=== PATIENT | male | born 1990 | race Caucasian/White ===

== ENCOUNTER 2017-02-17 14:27 | Emergency (ER) | payer BC, MEDICAID ==
[2017-02-17 16:30] VITALS: BP 139/78
--- NOTE | 2017-02-17 17:30 | RAD ---
Indication: Left knee injury. 4 views of the left knee demonstrates no fracture. There is suggestion of a joint effusion. IMPRESSION: No fracture of the left knee is noted. There is suggestion of a joint effusion noted.
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
== END 2017-02-17 18:38 | disposition home or self-care (01) ==
LOC: ED 14:27
DX: S83.92XA Sprain of unspecified site of left knee, initial encounter (principal); X50.1XXA Overexertion from prolonged static or awkward postures, initial encounter; Y93.89 Activity, other specified
CPT/HCPCS: 99282

== ENCOUNTER 2019-01-06 08:29 | Day surgery (SDC) | payer BC, MEDICAID ==
--- NOTE | 2019-01-03 18:24 | HP ---
PREOPERATIVE HISTORY AND PHYSICAL: DATE OF ADMISSION/SURGERY: 01/06/19 [facility] DATE OF OFFICE VISIT: 01/02/19 ATTENDING SURGEON: Dr. Cameron Byers.* (DICTATED BY MILLICENT MAST) PROCEDURES: Left knee arthroscopy, anterior cruciate ligament reconstruction, partial meniscectomy. CHIEF COMPLAINT: Left knee pain. HISTORY OF PRESENT ILLNESS: Justin is a 28-year-old male who presents to the clinic for left knee pain and instability due to a meniscus tear and ACL injury. He has failed conservative measures and therefore agreed to undergo a left knee arthroscopy, anterior cruciate ligament reconstruction, and partial meniscectomy with on 01/06/19. PAST MEDICAL HISTORY: No current problems. PAST SURGICAL HISTORY: Right knee surgery in high school. The patient denies prior complications with anesthesia. MEDICATIONS: No active medications. ALLERGIES: No known drug allergies. FAMILY HISTORY: He denies pertinent family history. He denies family history of DVT or PE. SOCIAL HISTORY: He lives with his spouse. He works as a hospital receiving clerk. He denies tobacco use. He reports occasional alcohol consumption. He exercises occasionally. He is right-hand dominant. REVIEW OF SYSTEMS: A 14-point review of systems was reviewed with the patient. Positive for current complaint, otherwise negative. Denies fevers, chills, chest pain, shortness of breath, history of DVT or PE, history of bleeding disorder. PHYSICAL EXAMINATION GENERAL: A 28-year-old well-developed, well-nourished male, in no acute distress. Alert and oriented x3. Appropriate mood and affect. Appropriate balance and coordination of the upper extremities. VITAL SIGNS: Height 73, weight 230, pulse 74, blood pressure 134/86, BMI 30.3. HEENT: Normocephalic, atraumatic. PERRLA. Throat: Clear. NECK: Supple. PULMONARY: Lungs are clear to auscultation bilaterally. No wheezing, rhonchi, or rales. CARDIO: Regular rate and rhythm. S1, S2. No murmurs, gallops, or rubs. No edema. ABDOMEN: Positive bowel sounds, soft, nontender. NEURO: Alert and oriented x3. Cranial nerves grossly intact. MUSCULOSKELETAL: Left lower extremity, skin is intact. No warmth or erythema. Nontender over the joint lines. No effusion. Range of motion 0 to 130. Stable varus and valgus stress. Stable Melissa. Negative posterior drawer. Calf soft, nontender. +5/5 strength with dorsiflexion and plantar flexion. +2 DP pulse. Sensation is intact to light touch distally. DIAGNOSTIC STUDIES: Multi-view x-rays and MRI of the left knee revealed a complete ACL rupture and discoid meniscus. 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 PLAN: The patient is scheduled to undergo a left knee arthroscopy, anterior cruciate ligament reconstruction with partial meniscectomy with Dr. Byers on . He has agreed to undergo BTB autograft. Percocet will be used for postop management and Keflex for antibiotic prophylaxis. He will follow up 8 days postop. MILLICENT MAST [id number]/[facility] #: [id number] ABEL
[~2019-01-06 08:29] MED LIST: Famotidine IV* 10 MG/ML 2 ML (20 mg) IV ONE; Lactated Ringers 1000 ML Bag* 1,000 ML IV SCH
[2019-01-06] MEDS ORDERED: ceFAZolin 2 GM in NS PREMIX(*) 2 GM/100 ML BAG IVPB ONE (08:41)
[2019-01-06] MEDS ORDERED: Famotidine IV* 10 MG/ML 2 ML (20 mg) ONE (08:41)
[2019-01-06] MEDS ORDERED: Buffered Lidocaine 1% SYRIN* 1 ML/SYRINGE INTRADERM ONE ×2 (08:41→08:47)
[2019-01-06] MEDS: Buffered Lidocaine 1% SYRIN* 1 ML/SYRINGE INTRADERM ONE (09:00)
[2019-01-06] MEDS ORDERED: Ketorolac INJ* 30 MG/ML 1 ML VIAL ONE (09:03)
[2019-01-06] MEDS ORDERED: fentaNYL* 50 MCG/ML 5 ML VIAL (250 MCG VIAL) ONE (09:03)
[2019-01-06] MEDS ORDERED: Midazolam* 1 MG/ML 5 ML VIAL (5 MG) ONE (09:03)
[2019-01-06] MEDS ORDERED: Ondansetron INJ* 2 MG/ML VIAL ONE (09:03)
[2019-01-06] MEDS ORDERED: Dexamethasone IV* 4 MG/ML 1 ML (4 MG) ONE (09:03)
[2019-01-06] MEDS ORDERED: Propofol* 10 MG/ML 20 ML BTL ONE (09:03)
[2019-01-06] MEDS ORDERED: Lidocaine 2% PF * 5 ML VIAL ONE (09:03)
[2019-01-06] MEDS ORDERED: oxyCODONE/Acetamin 5/325 MG* TAB PO PRN (11:39)
[2019-01-06] MEDS ORDERED: Ondansetron INJ* 2 MG/ML VIAL IV PRN (11:39)
[2019-01-06] MEDS ORDERED: Naloxone* 0.4 MG/ML 1 ML VIAL IV PRN (11:39)
[2019-01-06] MEDS ORDERED: fentaNYL* 50 MCG/ML 2 ML VIAL (100 MCG VIAL) ONE ×2 (12:08→12:48)
[2019-01-06] MEDS ORDERED: Ropivacaine* 2 MG/ML 20 ML VIAL (0.2%) ONE (12:34)
[2019-01-06] MEDS ORDERED: Lidocaine 1% MPF wEPI 200,000* 30 ML SDV ONE (12:34)
[2019-01-06] MEDS ORDERED: oxyCODONE/Acetamin 5/325 MG* TAB ONE (12:48)
[2019-01-06] MEDS ORDERED: HYDROmorphone INJ1* 1 MG/ML SYRINGE ONE (12:48)
[2019-01-06] MEDS: fentaNYL* 50 MCG/ML 2 ML VIAL (100 MCG VIAL) IV PRN ×2 (12:52→13:07)
[2019-01-06] MEDS: HYDROmorphone INJ1* 1 MG/ML SYRINGE IV PRN ×2 (12:53→13:11)
[2019-01-06 15:19] VITALS: BP 143/83
--- NOTE | 2019-01-07 02:24 | OP ---
DATE OF OPERATION: 01/06/19 [facility] DATE OF : 86 SURGEON: Cameron Byers MD. LENDING CONSULTANT: MILLICENT Graves. An development assistant was needed for the entirety of the case to help with positioning, retraction, and was utilized throughout all portions of the case. ANESTHESIOLOGIST: Dr. Bryan. ANESTHESIA: General. PRE-OP DIAGNOSIS: Left knee grade 3 anterior cruciate ligament rupture. POST-OP DIAGNOSIS: Left knee grade 3 anterior cruciate ligament rupture. OPERATIVE PROCEDURE: Left knee arthroscopy with ACL reconstruction using BTB autograft and partial lateral meniscectomy. COMPLICATIONS: None. ESTIMATED BLOOD LOSS: Minimal. TOURNIQUET TIME: 56 minutes at 250 mmHg. INDICATIONS: Justin Diaz is a 28-year-old male who sustained a left ACL injury with a lateral meniscus tear. After extensive discussion of the risks and benefits of surgical treatment, risks including; but not limited to bleeding , infection, damage to nerves; vessels; surrounding structures, wound nonhealing , persistent pain, need for further surgery, scarring, stiffness, incomplete relief of symptoms, risk of anesthesia, risk of DVT, he elected to proceed. DESCRIPTION OF PROCEDURE: Patient was greeted in the preoperative area by the attending surgeon. The correct extremity was marked and consent was confirmed. Patient was brought back to the operating suite, where he was placed in the supine position on the operating table. He then underwent general anesthesia and LMA intubation, after which he was placed in the supine position on the operating table. The lateral post was positioned, an unsterile tourniquet was placed as well as a bump to keep the knee at 90 degrees. An unsterile tourniquet was placed high on the proximal thigh, lateral post was positioned, and beanbag was placed. The left leg was then prepped and draped in usual sterile fashion beginning with chlorhexidine soap, scrub, and alcohol wipe and a final prep of ChloraPrep. After appropriate surgical pause indicating side, site, procedure, and administration of antibiotics, the knee was intraarticularly injected with 1% lidocaine with epi. The limb was then exsanguinated and the tourniquet inflated to 250 mmHg, after which a midline incision was centered over the patellar tendon. Care was taken to try to avoid the very bursal areas for prepatellar bursitis. The soft tissues were carefully dissected to expose the paratenon, which was then incised for a layer with flaps for later closure, after which the patellar tendon was identified and found to be 40 mm in length and width. The center 10 mm was then harvested with a 10 blade. The dissection was taken proximally and the bone block was harvested using a sagittal saw to allow for a 9 x 23 mm bone block. Distally, a 10 x 30 was then harvested using sagittal saw. The graft was then prepared on the back table by the development assistant while the attending closed the tendon with an 0 Vicryl in an interrupted fashion. The tourniquet was eventually deflated after the arthroscopic portion was done. Attention was then directed to arthroscopy. The lateral portal was then made through the capsule. Using an 11 blade, the scope was brought to the joint and examined. There was abundant synovitis of the fat pad anteriorly. The anteromedial portal was made in an outside-in fashion. The shaver was used to debride back the abundant fat pad. The ACL was visualized and found to have a full-thickness grade 3 rupture with a small remnant still attached that was scarred to the PCL. The ACL remnant was then removed. The femoral footprint was then skeletonized and then marked provisionally with an awl. The tibial footprint was also skeletonized. The scope was then positioned in the medial compartment. There were grade 0 to 1 changes in the medial femoral condyle. The medial meniscus was intact. The knee was placed in [id number] position. There was evidence of a discoid meniscus, which was apparent preoperatively. There was evidence of tearing, however, in the posterior aspects of the discoid meniscus. This was saucerized and then 1 flap of the longitudinal tear was removed so that the remainder of it remained intact. After this was completed, attention was directed to the remainder of the ACL. Patellofemoral joint was intact with grade 0 changes. The gutters were intact without any loose bodies or debris. The knee was then placed in 90 degrees. Attention was directed to the ACL. The tip-to-tip guide was set at about 52 degrees and placed in the center of the tibial footprint. The guidewire was then placed and then a 10 mm full-bore reamer was then used to ream the tunnel as this bone was saved for later bone graft. The graft was then rasped using the rasp and the shaver, and curette was used to remove any excess soft tissue. Care was placed to prevent fluid egress. Attention was directed to the femoral tunnel. The knee was then hyperflexed and the Tatum and Nephew straight guide was placed in the center of the femoral footprint. A Beath pin was then placed through the center of the femoral footprint and then a size 9 mm low-profile reamer was then drilled to a depth of about 25 mm. The tunnel was then drilled and removed of any loose bone and debris and a notchplasty to notch the tunnel. Then, 2-0 Ethibond was placed through the eyelet of the Beath pin and advanced and then shovelled through the tibial tunnel to pass the suture. At this point, the grafts were brought from the back table and passed under direct and arthroscopic visualization and well seated into the femoral tunnel. Once it was well seated , it was then secured with a 7 x 20 mm SOFTSILK screw with excellent purchase. Knee was then taken through full extension and no evidence of impingement was identified. The knee was then cycled 15 times with no creep or stretch of the graft or tearing or changing of the graft position. The scope was brought back into the joint to visualize and the graft was found to be in the same position. The knee was then taken through about 20 to 30 degrees of flexion with tension on the tibial suture and posterior drawer. The tibial tunnel was then secured with a 9 x 25 mm screw. The knee was then taken through a full range of motion. Melissa's was found to be stable. The scope was brought back to the joint and finally examined. The graft was found to be in good position. Final images were obtained. The wounds were copiously irrigated with sterile saline. The excess bone graft was then placed in the patellar and tibial defects. The paratenon was closed with 2-0 Vicryl, the skin was closed in layers with 3-0 Monocryl and subcu in running fashion. Sterile dressings were applied. Cryo/Cuff and a hinged knee brace were applied. He was awoken from anesthesia and transferred to PACU in stable condition. POSTOPERATIVE PLAN: He will be nonweightbearing. He will be sent home on pain medications and antibiotics. DVT prophylaxis was considered, but deferred due to previous personal and family history. I will see the patient back in 6 to 8 days. [id number]/[facility] #: [id number] ABEL
== END 2019-01-06 15:23 | disposition home or self-care (01) ==
LOC: OR 08:29
PROVIDERS: ATTEND Orthopaedic Surgery
DX: S83.512A Sprain of anterior cruciate ligament of left knee, initial encounter (principal); S83.282A Other tear of lateral meniscus, current injury, left knee, initial encounter; X58.XXXA Exposure to other specified factors, initial encounter; Y92.9 Unspecified place or not applicable
CPT/HCPCS: A9270-GY; C1713; J0690; J1100; J1170; J1885; J2001; J2250; J2405; J2704; J2795; J3010